=== PATIENT | male | born 1960 | race Caucasian/White ===

== ENCOUNTER 2016-09-18 13:15 | Emergency (ER) | payer SELFPAY ==
[2016-09-18 13:21] VITALS: BP 137/79; PULSE 68; RESP 18; TEMP 98.5; O2SAT 100
--- NOTE | 2016-09-18 13:50 | C.PDOC ---
History Of Present Illness The patient reports that he was bit by his dog on the right hand 2 days ago. Patient reports that he was washing the hand with soap and applying peroxide, and is here for wound check. Denies fever, drainage, numbness, or weakness. Time Seen by Provider: 09/18/16 13:27 Chief Complaint (Nursing): Bite History Per: Patient History/Exam Limitations: no limitations Onset/Duration Of Symptoms: Days Current Symptoms Are (Timing): Better Pain Scale Rating Of: 0 Recent travel outside of the [place]: No - Animal Bite Description Of The Attack: Playing With Animal Description Of The Animal: Family Pet Reports Animal's Immunization Status: [facility] Animal Control Notified: No Past Medical History Reviewed: Historical Data, Nursing Documentation, Vital Signs Vital Signs: Last Vital Signs Temp 98.5 F 09/18/16 13:20 Pulse 68 09/18/16 13:20 Resp 18 09/18/16 13:20 BP 137/79 09/18/16 13:20 Pulse Ox 100 09/18/16 13:51 - Medical History PMH: No Chronic Diseases Family History: States: No Known Family Hx - Social History Hx Alcohol Use: No Hx Substance Use: No - Immunization History Hx Influenza Vaccination: No Hx Pneumococcal Vaccination: No Review Of Systems Constitutional: Negative for: Fever, Weakness Musculoskeletal: Negative for: Hand Pain Skin: Positive for: Other (bite) Neurological: Negative for: Weakness, Numbness Physical Exam - Physical Exam Appears: Well, Non-toxic Skin: Normal Color, Warm, Other ((+) Two 0.5cm healed bite wounds in between the thumb and pointer finger web space of the right hand. No erythema, tenderness, swelling, induration or fluctuance. ) Head: Atraumatic, Normacephalic Eye(s): bilateral: Normal Inspection Oral Mucosa: Moist Extremity: Normal ROM, Capillary Refill (< 2 sec) Extremity: Bilateral: Normal Color And Temperature Pulses: Left Radial: Normal, Right Radial: Normal Neurological/Psych: Oriented x3, Normal Speech, Normal Motor, Normal Sensation Gait: Steady ED Course And Treatment O2 Sat by Pulse Oximetry: 100 (on RA) Pulse Ox Interpretation: Normal Medical Decision Making Medical Decision Making: The wound appears to be healing well and no evidence of cellulitis at this time. Will wrist Rx for augmentin as a precaution. The patient reports that he is up to date with tetanus. Disposition - Disposition Referrals: Shan Cui DO [[facility]] - Disposition: HOME/ ROUTINE Disposition Time: 13:49 Condition: GOOD Additional Instructions: Followup with the medical doctor within 1-2 days for wound check. Return if worsened. Prescriptions: Amoxicillin/Clavulanate [Augmentin 875 MG-125 MG] 1 tab PO BID #20 tab Instructions: Animal Bite (ED), Acute Wound Care (ED) Forms: Jarvam (Serbian) - Clinical Impression Clinical Impression: Animal bite wound, Visit for wound check
== END 2016-09-18 14:11 | disposition home or self-care (01) ==
LOC: C.ER 13:15
DX: Z48.00 Encounter for change or removal of nonsurgical wound dressing (principal)